=== PATIENT | female | born 1980 | race American Indian/Alaskan Native ===

== ENCOUNTER 2017-07-12 01:56 | Emergency (ER) | payer BC ==
--- NOTE | 2017-07-12 03:30 | XRay Report ---
FINAL REPORT PROCEDURE: XR ANKLE 2V LT TECHNIQUE: LEFT ankle radiographs, AP, lateral, and oblique views. CPT 53806 HISTORY: swollen left ankle and foot COMPARISON: No prior studies are available for comparison. FINDINGS: Fracture (s) and/or Dislocation(s): None. Alignment: Normal. Joint space(s): Normal. Soft tissues: There is generalized soft tissue swelling. Bone mineralization: Normal. Foreign bodies: None. Calcaneal spurring: None. IMPRESSION: There is no acute bony abnormality. There is generalized soft tissue swelling..
--- NOTE | 2017-07-12 03:31 | XRay Report ---
FINAL REPORT PROCEDURE: XR FOOT 2V LT TECHNIQUE: LEFT foot radiographs, AP and lateral views. HISTORY: swollen left ankle and foot COMPARISON: No prior studies are available for comparison. FINDINGS: Fracture (s) and/or Dislocation(s): None . Alignment: Normal. Joint space(s): Normal. Soft tissues: Normal. Bone mineralization: Normal. Foreign bodies: None. Calcaneal spurring: None. IMPRESSION: Normal Examination.
--- NOTE | 2017-07-12 04:02 | Emergency Department Report ---
ED Extremity Problem HPI - General Chief complaint: Extremity Injury, Lower Stated complaint: LEFT FOOT PAIN Time Seen by Provider: 07/12/17 03:58 Source: patient Mode of arrival: Ambulatory Limitations: No Limitations - History of Present Illness Initial comments: 37-year-old -[place] female with past medical history of hypertension who was supposed to be on hydrochlorothiazide but not taking comes in complaint of left foot pain and left ankle pain. She denies any trauma this been going on for 1 day. 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 Patient has taken no pain medication. Patient's able to walk without difficulties. She has no primary care provider. Has no known drug allergies. Takes no medications on a daily basis. MD Complaint: extremity pain, extremity swelling -: days(s) (1) Location: left, lower extremity (foot/ankle) History of Same: No Severity scale (0 -10): 8 Quality: burning, aching Consistency: constant Improves with: rest Worsens with: weight bearing, walking Associated Symptoms: denies other symptoms - Related Data Previous Rx's Medication Instructions Recorded Last Taken Type Hydrochlorothiazide [Hctz] 12.5 mg PO QDAY #30 capsule 07/12/17 Unknown Rx Ibuprofen [Motrin 800 MG tab] 800 mg PO Q8HR PRN #30 tablet 07/12/17 Unknown Rx Allergies Allergy/AdvReac Type Severity Reaction Status Date / Time No Known Allergies Allergy Unverified 07/12/17 02:35 ED Review of Systems ROS: Stated complaint: LEFT FOOT PAIN Other details as noted in HPI Constitutional: denies: chills, fever Eyes: denies: eye pain, eye discharge, vision change ENT: denies: ear pain, throat pain Respiratory: denies: cough, shortness of breath, wheezing Cardiovascular: denies: chest pain, palpitations Endocrine: no symptoms reported Gastrointestinal: denies: abdominal pain, nausea, diarrhea Genitourinary: denies: urgency, dysuria, discharge Musculoskeletal: joint swelling (left ankle), arthralgia (left foot pain) Skin: denies: rash, lesions Neurological: denies: headache, weakness, paresthesias Psychiatric: denies: anxiety, depression Hematological/Lymphatic: denies: easy bleeding, easy bruising ED Past Medical Hx - Past Medical History Previous Medical History?: Yes Additional medical history: Mitral valve prolapse - Surgical History Past Surgical History?: Yes Additional Surgical History: laposcopic - Social History Smoking Status: Never Smoker Substance Use Type: Alcohol - Medications Home Medications: Home Medications Medication Instructions Recorded Confirmed Last Taken Type Hydrochlorothiazide [Hctz] 12.5 mg PO QDAY #30 capsule 07/12/17 Unknown Rx Ibuprofen [Motrin 800 MG tab] 800 mg PO Q8HR PRN #30 tablet 07/12/17 Unknown Rx ED Physical Exam - General Limitations: No Limitations General appearance: alert, in no apparent distress - Head Head exam: Present: atraumatic, normocephalic - Eye Eye exam: Present: normal appearance - ENT ENT exam: Present: mucous membranes moist - Neck Neck exam: Present: normal inspection - Respiratory Respiratory exam: Present: normal lung sounds bilaterally. Absent: respiratory distress - Cardiovascular Cardiovascular Exam: Present: regular rate, normal rhythm. Absent: systolic murmur, diastolic murmur, rubs, gallop - GI/Abdominal GI/Abdominal exam: Present: soft, normal bowel sounds - Expanded Lower Extremity Exam Left Hip exam: Present: normal inspection, full ROM Upper Leg exam: Present: normal inspection, full ROM Knee exam: Present: normal inspection, full ROM Lower Leg exam: Present: normal inspection, full ROM Ankle exam: Present: full ROM, swelling (lateral malleolus). Absent: tenderness Foot/Toe exam: Present: full ROM, tenderness (palpating the metacarpals). Absent: swelling, abrasion, erythema - Back Exam Back exam: Present: normal inspection - Neurological Exam Neurological exam: Present: alert, oriented X3 - Psychiatric Psychiatric exam: Present: normal affect, normal mood - Skin Skin exam: Present: warm, dry, intact, normal color. Absent: rash ED Course Vital Signs 07/12/17 02:35 Temperature 98 F Pulse Rate 67 Respiratory 18 Rate Blood Pressure 165/110 O2 Sat by Pulse 100 Oximetry ED Medical Decision Making - Radiology Data Radiology results: image reviewed FINDINGS: Fracture (s) and/or Dislocation(s): None. Alignment: Normal. Joint space(s): Normal. Soft tissues: There is generalized soft tissue swelling. Bone mineralization: Normal. Foreign bodies: None. Calcaneal spurring: None. IMPRESSION: There is no acute bony abnormality. There is generalized soft tissue swelling.. Transcribed By: CO Dictated By: ASHER RG MD Electronically Authenticated By: ASHER RG MD Signed Date/Time: 07/12/17324 DD/ 4 TD/TT: 07/12/17324 - Medical Decision Making Patient's been evaluated by this provider fast track. X-rays of come back within normal limits no fractures or dislocations. Patient has not taken any [id number] pain medication. We will give patient ibuprofen 800 mg now and discharge her with ibuprofen 800 mg every 8 hours as needed for pain. Discussed the patient she needs to elevate her feet. Walking on them constantly is probably aggravating the worse. Patient is to follow-up with her primary care provider regards to her chronic hypertension. Critical care attestation.: If time is entered above; I have spent that time in minutes in the direct care of this critically ill patient, excluding procedure time. ED Disposition Clinical Impression: Foot pain, left, HTN, goal below 130/80 Disposition: - TO HOME OR SELFCARE Is pt being admited?: No Does the pt Need Aspirin: No Condition: Stable Instructions: Hypertension (ED) Additional Instructions: Please take pain medication as prescribed. Please take her hypertensive medicine as prescribed. Please follow-up with the primary care provider I have listed [facility] below. Prescriptions: Hydrochlorothiazide [Hctz] 12.5 mg PO QDAY #30 capsule Ibuprofen [Motrin 800 MG tab] 800 mg PO Q8HR PRN #30 tablet PRN Reason: Pain Referrals: PRIMARY MD LISY [Primary Care Provider] - 3-5 Days [facility] [Provider Group] - 3-5 Days Forms: Work/School Release Form(ED)
[2017-07-12] MEDS ORDERED: MOTRIN PO ONE (04:19)
[2017-07-12 04:43] VITALS: BP 156/104
== END 2017-07-12 04:30 | disposition home or self-care (01) ==
LOC: ED 01:56
DX: M79.672 Pain in left foot (principal); I10 Essential (primary) hypertension
CPT/HCPCS: 99283

== ENCOUNTER 2018-04-08 04:07 | Emergency (ER) | payer BC ==
[2018-04-08 04:49] LABS: Hematocrit 38.7 % (30.3-42.9); Hemoglobin 12.8 gm/dl (10.1-14.3); Red Blood Count 4.68 M/mm3 (3.65-5.03)
[2018-04-08 04:50] LABS: Basophils # (Auto) 0.1 K/mm3 (0.0-0.1); Basophils % (Auto) 1.3 % (0.0-1.8); Eosinophils # (Auto) 0.4 K/mm3 (0.0-0.4); Eosinophils % (Auto) 6.2 % (0.0-4.3); Lymphocytes # (Auto) 2.1 K/mm3 (1.2-5.4); Lymphocytes % (Auto) 32.8 % (13.4-35.0); Mean Corpuscular HGB Conc 33 % (30-34); Mean Corpuscular Volume 83 fl (79-97); Monocytes # (Auto) 0.5 K/mm3 (0.0-0.8); Monocytes % (Auto) 7.6 % (0.0-7.3); Platelet Count 361 K/mm3 (140-440); Red Cell Distribution Width 16.3 % (13.2-15.2)
[2018-04-08 05:45] LABS: Amorphous Crystals,Urine Few; Bilirubin,Urine NEG (Negative); Blood,Urine SM (Negative); Color,Urine Yellow (Yellow); Mucus,Urine FEW /HPF; Protein,Urine <15 mg/dL mg/dL (Negative); Urobilinogen,Urine < 2.0 mg/dL (<2.0)
--- NOTE | 2018-04-08 06:44 | Ultrasound Report ---
FINAL REPORT EXAM: US TRANSVAGINAL HISTORY: pain to pelvic TECHNIQUE: Transvaginal imaging was obtained of the pelvis. FINDINGS: The uterus is anteverted measuring 7.9 cm x 4.6 cm x 6 cm. The endometrial thickness is 7.7 mm. The m yometrium is homogeneous. Free fluid is not seen. Both ovaries are normal size contour blood flow and echotexture. The right ovary measures 3.3 cm x 1. 6 cm x 3.5 cm. The left ovary measures 4.2 cm x 2.2 cm x 2.8 cm. Both ovaries show benign-appearing f ollicles. IMPRESSION: Normal-appearing uterus and ovaries. No evidence of free fluid or pelvic masses.
--- NOTE | 2018-04-08 06:44 | Ultrasound Report ---
FINAL REPORT EXAM: US PELVIC COMPLETE HISTORY: pain to pelvic TECHNIQUE: Transabdominal imaging was obtained of the pelvis. FINDINGS: The uterus is anteverted measuring 7.9 cm x 4.6 cm x 6 cm. The endometrial thickness is 7.7 mm. The m yometrium is homogeneous. Free fluid is not seen. Both ovaries are appropriate size contour and echotexture revealing benign follicles bilaterally. The right ovary measures 3.3 cm x 1.6 cm x 3.5 cm. The left ovary measures 4.2 cm x 2.2 cm x 2.8 cm. IMPRESSION: Normal-appearing uterus and ovaries. No evidence of free fluid or adnexal masses.
--- NOTE | 2018-04-08 07:33 | Emergency Department Report ---
ED Abdominal Pain HPI - General Chief Complaint: Abdominal Pain Stated Complaint: PELVIC PAIN CRAMPS Time Seen by Provider: 04/08/18 05:44 Source: patient Mode of arrival: Ambulatory Limitations: No Limitations - History of Present Illness Initial Comments: 37-year-old female to emergency Department complaining of suprapubic pain which is sharp in nature. States this feels very similar to a time when she had to have scar tissue removed from her adnexa. States she started her period on Friday was having heavier than usual bleeding and some increased clots as well. Denies any known history of any uterine fibroids. She denies any possibility for an STD. She reports no fever, chills, sweats, chest pain or palpitation. MD Complaint: abdominal pain -: Gradual Location: suprapubic Radiation: suprapubic Migration to: no migration Quality: dull Improves With: nothing Worsens With: nothing Associated Symptoms: denies: nausea, vomiting, diarrhea, constipation, dysuria, hematemesis, anorexia - Related Data Previous Rx's Medication Instructions Recorded Last Taken Type Ibuprofen [Motrin 800 MG tab] 800 mg PO Q8HR PRN #30 tablet 07/12/17 Unknown Rx hydroCHLOROthiazide [Hctz] 12.5 mg PO QDAY #30 capsule 07/12/17 Unknown Rx Ketorolac [Toradol] 10 mg PO Q6H PRN #14 tablet 04/08/18 Unknown Rx traMADol [Ultram] 50 mg PO Q6HR PRN #20 tablet 04/08/18 Unknown Rx Allergies Allergy/AdvReac Type Severity Reaction Status Date / Time No Known Allergies Allergy Verified 04/08/18 04:22 ED Review of Systems ROS: Stated complaint: PELVIC PAIN CRAMPS Other details as noted in HPI Constitutional: denies: chills, fever Eyes: denies: eye pain, eye discharge, vision change ENT: denies: ear pain, throat pain Respiratory: denies: cough, shortness of breath, wheezing Cardiovascular: denies: chest pain, palpitations Endocrine: no symptoms reported Gastrointestinal: nausea. denies: abdominal pain, diarrhea Genitourinary: denies: urgency, dysuria, discharge Musculoskeletal: denies: back pain, joint swelling, arthralgia Skin: denies: rash, lesions Neurological: denies: headache, weakness, paresthesias Psychiatric: denies: anxiety, depression Hematological/Lymphatic: denies: easy bleeding, easy bruising ED Past Medical Hx - Past Medical History Previous Medical History?: Yes Hx Hypertension: Yes Additional medical history: Mitral valve prolapse - Surgical History Past Surgical History?: Yes Additional Surgical History: laposcopic. scar tissue removed from ovaries and fallopenan tubes. - Social History Smoking Status: Current Every Day Smoker Substance Use Type: Alcohol - Medications Home Medications: Home Medications Medication Instructions Recorded Confirmed Last Taken Type Ibuprofen [Motrin 800 MG tab] 800 mg PO Q8HR PRN #30 tablet 07/12/17 Unknown Rx hydroCHLOROthiazide [Hctz] 12.5 mg PO QDAY #30 capsule 07/12/17 Unknown Rx Ketorolac [Toradol] 10 mg PO Q6H PRN #14 tablet 04/08/18 Unknown Rx traMADol [Ultram] 50 mg PO Q6HR PRN #20 tablet 04/08/18 Unknown Rx ED Physical Exam - General Limitations: No Limitations General appearance: alert, in no apparent distress - Head Head exam: Present: atraumatic, normocephalic - Eye Eye exam: Present: normal appearance, PERRL - ENT ENT exam: Present: mucous membranes moist - Neck Neck exam: Present: normal inspection - Respiratory Respiratory exam: Present: normal lung sounds bilaterally. Absent: respiratory distress - Cardiovascular Cardiovascular Exam: Present: regular rate, normal rhythm. Absent: systolic murmur, diastolic murmur, rubs, gallop - GI/Abdominal GI/Abdominal exam: Present: soft, tenderness (suprapubic region), normal bowel sounds, other (assessment de la torre's. No Marcus sign, no Ndiaye Melo). Absent: guarding - Extremities Exam Extremities exam: Present: normal inspection, full ROM, normal capillary refill - Back Exam Back exam: Present: normal inspection - Neurological Exam Neurological exam: Present: alert, oriented X3 - Psychiatric Psychiatric exam: Present: normal affect, normal mood - Skin Skin exam: Present: warm, dry, intact, normal color. Absent: rash ED Course Vital Signs 04/08/18 04:17 Temperature 98.2 F Pulse Rate 81 Respiratory 18 Rate Blood Pressure 153/110 O2 Sat by Pulse 100 Oximetry ED Medical Decision Making - Lab Data Result diagrams: 04/08/18 04:26 - Radiology Data Radiology results: report reviewed Ultrasound is normal. No acute processes. No limb almost ovarian cyst Critical care attestation.: If time is entered above; I have spent that time in minutes in the direct care of this critically ill patient, excluding procedure time. ED Disposition Clinical Impression: Pelvic pain, Dysmenorrhea Disposition: TO HOME OR SELFCARE Is pt being admited?: No Does the pt Need Aspirin: No Condition: Stable Instructions: Abdominal Pain (ED) Prescriptions: Ketorolac [Toradol] 10 mg PO Q6H PRN #14 tablet PRN Reason: Pain traMADol [Ultram] 50 mg PO Q6HR PRN #20 tablet PRN Reason: Pain Referrals: ROX MELLO MD [Primary Care Provider] - 3-5 Days [facility] [Provider Group] - 3-5 Days
[2018-04-08] MEDS ORDERED: TORADOL IV STA (07:45)
[2018-04-08] MEDS ORDERED: TORADOL ONE (07:50)
[2018-04-08] MEDS ORDERED: TORADOL IM ONE (07:53)
[2018-04-08 08:05] VITALS: BP 148/100
== END 2018-04-08 08:04 | disposition home or self-care (01) ==
LOC: ED 04:07
DX: N94.6 Dysmenorrhea, unspecified (principal); I10 Essential (primary) hypertension; F17.200 Nicotine dependence, unspecified, uncomplicated
CPT/HCPCS: 36415; 76830; 76856; 81001; 84702; 85025; 96372; 99284; J1885

== ENCOUNTER 2018-05-02 05:17 | Emergency (ER) | payer BC ==
[2018-05-02] MEDS ORDERED: ASPIRIN PO ONE (05:36)
[2018-05-02 05:53] LABS: Basophils # (Auto) 0.1 K/mm3 (0.0-0.1); Basophils % (Auto) 1.2 % (0.0-1.8); Eosinophils # (Auto) 0.3 K/mm3 (0.0-0.4); Eosinophils % (Auto) 4.1 % (0.0-4.3); Hematocrit 36.8 % (30.3-42.9); Hemoglobin 12.4 gm/dl (10.1-14.3); Lymphocytes # (Auto) 2.6 K/mm3 (1.2-5.4); Lymphocytes % (Auto) 31.8 % (13.4-35.0); Mean Corpuscular HGB Conc 34 % (30-34); Mean Corpuscular Volume 82 fl (79-97); Monocytes # (Auto) 0.6 K/mm3 (0.0-0.8); Monocytes % (Auto) 7.4 % (0.0-7.3); Platelet Count 364 K/mm3 (140-440); Red Blood Count 4.52 M/mm3 (3.65-5.03); Red Cell Distribution Width 15.6 % (13.2-15.2)
[2018-05-02 06:24] LABS: BUN/Creatinine Ratio 23; Blood Urea Nitrogen 14 mg/dL (7-17); Calcium 8.8 mg/dL (8.4-10.2); Hemolysis Index 38
--- NOTE | 2018-05-02 06:30 | Emergency Department Report ---
Minor Respiratory - HPI Chief Complaint: Chest Pain Stated Complaint: CHEST PAIN Time Seen by Provider: 05/02/18 06:03 Duration: 2 Days Pain Location: Chest Severity: moderate Minor Respiratory: Yes Able to Tolerate Fluids, Yes Cough (non productive), Yes Chest Pain (soreness in the anterior chest), No Rhinorrhea, No Sore Throat, No Ear Pain, No Sick Contacts, No Hemoptysis, No Shortness of Breath, No Fever ED Review of Systems ROS: Stated complaint: CHEST PAIN Other details as noted in HPI Comment: All other systems reviewed and negative ED Past Medical Hx - Past Medical History Hx Hypertension: Yes Additional medical history: Mitral valve prolapse - Surgical History Additional Surgical History: laposcopic. scar tissue removed from ovaries and fallopenan tubes. - Social History Smoking Status: Never Smoker Substance Use Type: None - Medications Home Medications: Home Medications Medication Instructions Recorded Confirmed Last Taken Type Ibuprofen [Motrin 800 MG tab] 800 mg PO Q8HR PRN #30 tablet 07/12/17 Unknown Rx hydroCHLOROthiazide [Hctz] 12.5 mg PO QDAY #30 capsule 07/12/17 Unknown Rx Ketorolac [Toradol] 10 mg PO Q6H PRN #14 tablet 04/08/18 Unknown Rx traMADol [Ultram] 50 mg PO Q6HR PRN #20 tablet 04/08/18 Unknown Rx ALBUTEROL Inhaler (OR & NICU) 2 puff IH QID PRN #1 inhalation 05/02/18 Unknown Rx [ProAir HFA Inhaler] Benzonatate [Tessalon Perles] 100 mg PO Q8HR #10 capsule 05/02/18 Unknown Rx predniSONE [Deltasone] 20 mg PO QDAY #5 tab 05/02/18 Unknown Rx Minor Respiratory Exam - Exam General: Vital signs noted. No distress. Alert and acting appropriately. HEENT: Yes Moist Mucous Membranes, No Pharyngeal Erythema, No Pharyngeal Exudates, No Rhinorrhea, No Conjuctival Injection, No Frontal Tenderness, No Maxillary Tenderness Ear: Neither TM Bulge, Neither TM Erythema, Neither EAC Pain, Neither EAC Discharge Neck: Yes Supple, No Adenopathy Lungs: Yes Good Air Exchange, Yes Cough, No Wheezes, No Ronchi, No Stridor, No Labored Respirations, No Retractions, No Use of Accessory Muscles, No Other Abnormal Lung Sounds Heart: Yes Regular, No Murmur Abdomen: Yes Normal Bowel Sounds, No Tenderness, No Peritoneal Signs Skin: No Rash, No Edema Neurologic: Alert and oriented, no deficits. Musculoskeletal: Unremarkable. ED Course Vital Signs 05/02/18 05:34 Temperature 98.9 F Pulse Rate 85 Respiratory 14 Rate Blood Pressure 153/109 O2 Sat by Pulse 98 Oximetry ED Medical Decision Making - Lab Data Result diagrams: 05/02/18 05:42 05/02/18 05:42 Lab Results 05/02/18 05/02/18 Range/Units 05:42 05:42 WBC 8.2 (4.5-11.0) K/mm3 RBC 4.52 (3.65-5.03) M/mm3 Hgb 12.4 (10.1-14.3) gm/dl Hct 36.8 (30.3-42.9) % MCV 82 (79-97) fl MCH 28 (28-32) pg MCHC 34 (30-34) % RDW 15.6 H (13.2-15.2) % Plt Count 364 (140-440) K/mm3 Lymph % (Auto) 31.8 (13.4-35.0) % [place] % (Auto) 7.4 H (0.0-7.3) % Eos % (Auto) 4.1 (0.0-4.3) % Baso % (Auto) 1.2 (0.0-1.8) % Lymph # 2.6 (1.2-5.4) K/mm3 [place] # 0.6 (0.0-0.8) K/mm3 Eos # 0.3 (0.0-0.4) K/mm3 Baso # 0.1 (0.0-0.1) K/mm3 Seg Neutrophils % 55.5 (40.0-70.0) % Seg Neutrophils # 4.5 (1.8-7.7) K/mm3 Sodium 138 (137-145) mmol/L Potassium 4.2 (3.6-5.0) mmol/L Chloride 104.2 (98-107) mmol/L Carbon Dioxide 22 (22-30) mmol/L Anion Gap 16 mmol/L BUN 14 (7-17) mg/dL Creatinine 0.6 L (0.7-1.2) mg/dL Estimated GFR > 60 ml/min BUN/Creatinine Ratio 23 % Glucose 91 (65-100) mg/dL Calcium 8.8 (8.4-10.2) mg/dL Troponin T < 0.010 (0.00-0.029) ng/mL - EKG Data -: EKG Interpreted by Me EKG shows normal: sinus rhythm, axis, intervals, QRS complexes, ST-T waves Rate: normal - EKG Data Interpretation: normal EKG - Radiology Data CXR WNL Critical care attestation.: If time is entered above; I have spent that time in minutes in the direct care of this critically ill patient, excluding procedure time. ED Disposition Clinical Impression: Costochondral chest pain Acute bronchitis Qualifiers: Bronchitis organism: unspecified organism Qualified Code(s): J20.9 - Acute bronchitis, unspecified Disposition: DC- TO HOME OR SELFCARE Is pt being admited?: No Does the pt Need Aspirin: No Condition: Stable Instructions: Acute Bronchitis (ED), Costochondritis (ED) Referrals: KRISTINE MCCABE MD [Primary Care Provider] - 3-5 Days Time of Disposition: 08:19
--- NOTE | 2018-05-02 07:44 | XRay Report ---
FINAL REPORT PROCEDURE: XR CHEST ROUTINE 2V TECHNIQUE: PA and lateral chest radiographs were obtained. CPT 73697 HISTORY: chest pain COMPARISON: No prior studies are available for comparison. FINDINGS: Heart: Normal. Mediastinum/Vessels: Normal. Lungs/Pleural space: Normal. Bony thorax: No acute osseous abnormality. Other: IMPRESSION: Normal examination.
[2018-05-02 08:35] VITALS: BP 122/72
== END 2018-05-02 08:34 | disposition home or self-care (01) ==
LOC: ED 05:17
DX: M94.0 Chondrocostal junction syndrome [Tietze] (principal); J20.9 Acute bronchitis, unspecified; I10 Essential (primary) hypertension
CPT/HCPCS: 36415; 71046; 80048; 84484; 84703; 85025; 93005; 93010

== ENCOUNTER 2018-08-16 18:47 | Emergency (ER) | payer BC ==
[2018-08-16 18:57] VITALS: BP 143/92
[2018-08-16] MEDS ORDERED: TORADOL IM ONE (20:06)
[2018-08-16] MEDS ORDERED: ZOFRAN ODT PO ONE (20:06)
[2018-08-16] MEDS ORDERED: FLEXERIL PO ONE (20:06)
[2018-08-16] MEDS ORDERED: DECADRON IM ONE (20:06)
[2018-08-16] MEDS ORDERED: PERCOCET 5/325 PO ONE (20:07)
--- NOTE | 2018-08-16 21:03 | Emergency Department Report ---
ED General Adult HPI - General Chief complaint: Earache Stated complaint: LT EAR ACHE/ITCHING/CLOGGED Time Seen by Provider: 08/16/18 20:00 Source: patient Mode of arrival: Ambulatory Limitations: No Limitations - History of Present Illness Initial comments: Patient is a 38-year-old -Indian female with a history of chronic low back pain and sciatica who presents to the ED with acute exacerbation of her chronic low back pain that radiates to the left leg for the last 2 weeks. Patient states that she's been taking [id number] medications with no relief. Patient also complains of left ear pain with cerumen impaction and purulent discharge for the last 2 days. Patient stated that she tried to flush the left ear but the pain got worse. Patient denies headache, dizziness, fever, chills, nausea, vomiting, cough, nasal and sinus congestion, vomiting, numbness and tingling or weakness of extremities bilaterally, dysuria, urinary frequency and urgency, abdominal pain, chest pain or shortness of breath and sore throat. MD Complaint: low back pain; left ear pain -: Gradual, week(s) (2) Location: face (left ear), back (lower back) Radiation: extremity (left leg) Severity scale (0 -10): 8 Quality: aching, sharp, constant Consistency: constant Improves with: none Worsens with: movement Associated Symptoms: denies: confusion, chest pain, cough, diaphoresis, fever/chills, headaches, loss of appetite, malaise, nausea/vomiting, shortness of breath, syncope, weakness Treatments Prior to Arrival: NSAID - Related Data Previous Rx's Medication Instructions Recorded Last Taken Type Ibuprofen [Motrin 800 MG tab] 800 mg PO Q8HR PRN #30 tablet 07/12/17 Unknown Rx hydroCHLOROthiazide [Hctz] 12.5 mg PO QDAY #30 capsule 07/12/17 Unknown Rx Ketorolac [Toradol] 10 mg PO Q6H PRN #14 tablet 04/08/18 Unknown Rx ALBUTEROL Inhaler (OR & NICU) 2 puff IH QID PRN #1 inhalation 05/02/18 Unknown Rx [ProAir HFA Inhaler] Benzonatate [Tessalon Perles] 100 mg PO Q8HR #10 capsule 05/02/18 Unknown Rx predniSONE [Deltasone] 20 mg PO QDAY #5 tab 05/02/18 Unknown Rx Amoxicillin/Potassium Clav 1 each PO Q12H #20 tablet 08/16/18 Unknown Rx [Augmentin 875-125 Tablet] Baclofen 20 mg PO Q8H PRN #15 tablet 08/16/18 Unknown Rx Ibuprofen [Motrin] 600 mg PO Q8H PRN #20 tablet 08/16/18 Unknown Rx Ofloxacin 0.3% [Floxin 0.3% Otic] 2 drops OT Q12H #5 ml 08/16/18 Unknown Rx predniSONE [Deltasone] 60 mg PO QDAY #15 tab 08/16/18 Unknown Rx traMADol [Ultram 50 MG tab] 50 mg PO Q6HR PRN #15 tablet 08/16/18 Unknown Rx Allergies Allergy/AdvReac Type Severity Reaction Status Date / Time No Known Allergies Allergy Verified 04/08/18 04:22 ED Review of Systems ROS: Stated complaint: LT EAR ACHE/ITCHING/CLOGGED Other details as noted in HPI Comment: All other systems reviewed and negative Constitutional: denies: chills, fever Eyes: denies: eye pain, eye discharge, vision change ENT: ear pain (left). denies: throat pain, dental pain, hearing loss, epistaxis Respiratory: denies: cough, orthopnea, shortness of breath, SOB with exertion, SOB at rest, wheezing Cardiovascular: denies: chest pain, palpitations Endocrine: no symptoms reported. denies: see HPI, excessive sweating, intolerance to cold, increased hunger, increased thirst, increased urine, unexplained weight gain Gastrointestinal: denies: abdominal pain, nausea, diarrhea Genitourinary: denies: urgency, dysuria, discharge Musculoskeletal: back pain (lower bck), arthralgia (lower back), myalgia. denies: joint swelling Skin: denies: rash, lesions Neurological: denies: headache, weakness, paresthesias Psychiatric: denies: anxiety, depression Hematological/Lymphatic: denies: easy bleeding, easy bruising ED Past Medical Hx - Past Medical History Previous Medical History?: Yes Hx Hypertension: Yes Additional medical history: Mitral valve prolapse - Surgical History Past Surgical History?: Yes Additional Surgical History: laposcopic. scar tissue removed from ovaries and fallopenan tubes. - Social History Smoking Status: Never Smoker Substance Use Type: Alcohol - Medications Home Medications: Home Medications Medication Instructions Recorded Confirmed Last Taken Type Ibuprofen [Motrin 800 MG tab] 800 mg PO Q8HR PRN #30 tablet 07/12/17 Unknown Rx hydroCHLOROthiazide [Hctz] 12.5 mg PO QDAY #30 capsule 07/12/17 Unknown Rx Ketorolac [Toradol] 10 mg PO Q6H PRN #14 tablet 04/08/18 Unknown Rx ALBUTEROL Inhaler (OR & NICU) 2 puff IH QID PRN #1 inhalation 05/02/18 Unknown Rx [ProAir HFA Inhaler] Benzonatate [Tessalon Perles] 100 mg PO Q8HR #10 capsule 05/02/18 Unknown Rx predniSONE [Deltasone] 20 mg PO QDAY #5 tab 05/02/18 Unknown Rx Amoxicillin/Potassium Clav 1 each PO Q12H #20 tablet 08/16/18 Unknown Rx [Augmentin 875-125 Tablet] Baclofen 20 mg PO Q8H PRN #15 tablet 08/16/18 Unknown Rx Ibuprofen [Motrin] 600 mg PO Q8H PRN #20 tablet 08/16/18 Unknown Rx Ofloxacin 0.3% [Floxin 0.3% Otic] 2 drops OT Q12H #5 ml 08/16/18 Unknown Rx predniSONE [Deltasone] 60 mg PO QDAY #15 tab 08/16/18 Unknown Rx traMADol [Ultram 50 MG tab] 50 mg PO Q6HR PRN #15 tablet 08/16/18 Unknown Rx ED Physical Exam - General Limitations: No Limitations General appearance: alert, in no apparent distress - Head Head exam: Present: atraumatic, normocephalic, normal inspection - Eye Eye exam: Present: normal appearance, PERRL, EOMI. Absent: scleral icterus, nystagmus Pupils: Present: normal accommodation - ENT ENT exam: Present: normal exam, mucous membranes moist, normal external ear exam, other (erythematous left tympanic membrane; cerumen impacted) - Neck Neck exam: Present: normal inspection, full ROM. Absent: tenderness, meningismus, lymphadenopathy, thyromegaly - Respiratory Respiratory exam: Present: normal lung sounds bilaterally. Absent: respiratory distress, wheezes, rales, rhonchi, stridor, chest wall tenderness, accessory muscle use, decreased breath sounds, prolonged expiratory - Cardiovascular Cardiovascular Exam: Present: regular rate, normal rhythm, normal heart sounds. Absent: systolic murmur, diastolic murmur, rubs, gallop - GI/Abdominal GI/Abdominal exam: Present: soft, normal bowel sounds. Absent: tenderness, guarding, rebound, hyperactive bowel sounds, hypoactive bowel sounds, organomegaly - Rectal Rectal exam: Present: deferred - Extremities Exam Extremities exam: Present: normal inspection, full ROM, normal capillary refill - Back Exam Back exam: Present: normal inspection, full ROM, tenderness (Palpable lumbosacral paraspinal musculoskeletal tenderness), muscle spasm, paraspinal tenderness - Neurological Exam Neurological exam: Present: alert, oriented X3, CN II-XII intact, normal gait, reflexes normal - Psychiatric Psychiatric exam: Present: normal affect, normal mood - Skin Skin exam: Present: warm, dry, intact, normal color. Absent: rash ED Course Vital Signs 08/16/18 18:52 Temperature 98.4 F Pulse Rate 79 Respiratory 18 Rate Blood Pressure 143/92 O2 Sat by Pulse 100 Oximetry - Reevaluation(s) Reevaluation #1: 08/16/18 21:12 Patient is alert and oriented 3 and is not in distress with normal vital signs. Patient was treated for pain in the ED and on reevaluation, patient's pain is well controlled. Patient discharged home on pain medications and advised follow-up with her primary care physician in 7-10 days for reevaluation. Patient was also referred to the orthopedic surgeon Dr. Ch and Dr. Gudino, the Neurologist for further evaluation. Patient advised to return to the ED immediately if her symptoms get worse. ED Medical Decision Making - Medical Decision Making Patient is alert and oriented 3 and is not in distress with normal vital signs. Patient was treated for pain in the ED and on reevaluation, patient's pain is well controlled. Patient discharged home on pain medications and advised follow-up with her primary care physician in 7-10 days for reevaluation. Patient was also referred to the orthopedic surgeon Dr. Ch and Dr. Gudino, the Neurologist for further evaluation. Patient advised to return to the ED immediately if her symptoms get worse. - Differential Diagnosis chronic back pain; muscle spasm of back; chronci sciatica, otitis media Critical care attestation.: If time is entered above; I have spent that time in minutes in the direct care of this critically ill patient, excluding procedure time. ED Disposition Clinical Impression: Impacted cerumen of left ear, Acute otitis media, left Chronic low back pain with sciatica Qualifiers: Back pain laterality: left Sciatica laterality: sciatica of left side Qualified Code(s): M54.42 - Lumbago with sciatica, left side; G89.29 - Other chronic pain Disposition: TO HOME OR SELFCARE Is pt being admited?: No Does the pt Need Aspirin: No Condition: Stable Instructions: Otitis Media (ED), Lumbar Radiculopathy (ED), Arthralgia (ED), Cerumen Impaction (ED) Additional Instructions: Take medications at home, drink plenty of fluids and follow up with your primary care physician in 3-5 days for reevaluation. Return to the ED immediately if symptoms get worse. Prescriptions: Amoxicillin/Potassium Clav [Augmentin 875-125 Tablet] 1 each PO Q12H #20 tablet Baclofen 20 mg PO Q8H PRN #15 tablet PRN Reason: Spasms predniSONE [Deltasone] 60 mg PO QDAY #15 tab Ofloxacin 0.3% [Floxin 0.3% Otic] 2 drops OT Q12H #5 ml Ibuprofen [Motrin] 600 mg PO Q8H PRN #20 tablet PRN Reason: Pain traMADol [Ultram 50 MG tab] 50 mg PO Q6HR PRN #15 tablet PRN Reason: Pain Referrals: SABA GUDINO MD [Referring] - 3-5 Days NEO CH MD [Staff Physician] - 3-5 Days Time of Disposition: 21:00 Print Language: JAPANESE
== END 2018-08-16 21:22 | disposition home or self-care (01) ==
LOC: ED 18:47
DX: G89.29 Other chronic pain (principal); M54.42 Lumbago with sciatica, left side; H61.22 Impacted cerumen, left ear; H66.92 Otitis media, unspecified, left ear; I10 Essential (primary) hypertension; Z98.890 Other specified postprocedural states; Z79.899 Other long term (current) drug therapy
CPT/HCPCS: 96372; 99282; J1100; J1885; Q0162

== ENCOUNTER 2019-02-12 16:36 | Emergency (ER) | payer BC ==
--- NOTE | 2019-02-12 17:13 | Event Note ---
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
[2019-02-12 17:14] VITALS: BP 153/99
--- NOTE | 2019-02-12 17:14 | Emergency Department Report ---
ED Extremity Problem HPI - General Chief complaint: Extremity Injury, Upper Stated complaint: (L) SHOULDER ROTATOR CUFF Time Seen by Provider: 02/12/19 17:08 Source: patient Mode of arrival: Ambulatory Limitations: No Limitations - History of Present Illness Initial comments: pt is a 38 yo female who presents to the ED with c/o left shoulder pain. 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 she denies any fall or injury. she does not report any numbness or weakness. she states she went to [facility] and that is who diagnosed her with the small tear previously. PMHx HTN. no allergies to meds. - Related Data Previous Rx's Medication Instructions Recorded Last Taken Type Ibuprofen [Motrin 800 MG tab] 800 mg PO Q8HR PRN #30 tablet 07/12/17 Unknown Rx hydroCHLOROthiazide [Hctz] 12.5 mg PO QDAY #30 capsule 07/12/17 Unknown Rx Ketorolac [Toradol] 10 mg PO Q6H PRN #14 tablet 04/08/18 Unknown Rx ALBUTEROL Inhaler (OR & NICU) 2 puff IH QID PRN #1 inhalation 05/02/18 Unknown Rx [ProAir HFA Inhaler] Benzonatate [Tessalon Perles] 100 mg PO Q8HR #10 capsule 05/02/18 Unknown Rx predniSONE [Deltasone] 20 mg PO QDAY #5 tab 05/02/18 Unknown Rx Amoxicillin/Potassium Clav 1 each PO Q12H #20 tablet 08/16/18 Unknown Rx [Augmentin 875-125 Tablet] Baclofen 20 mg PO Q8H PRN #15 tablet 08/16/18 Unknown Rx Ibuprofen [Motrin] 600 mg PO Q8H PRN #20 tablet 08/16/18 Unknown Rx Ofloxacin 0.3% [Floxin 0.3% Otic] 2 drops OT Q12H #5 ml 08/16/18 Unknown Rx predniSONE [Deltasone] 60 mg PO QDAY #15 tab 08/16/18 Unknown Rx traMADoL [Ultram 50 MG tab] 50 mg PO Q6HR PRN #15 tablet 08/16/18 Unknown Rx Cyclobenzaprine [Flexeril] 10 mg PO QHS PRN #12 tablet 02/12/19 Unknown Rx Naproxen [EC-Naproxen] 500 mg PO BID PRN #20 tablet. 02/12/19 Unknown Rx Allergies Allergy/AdvReac Type Severity Reaction Status Date / Time No Known Allergies Allergy Verified 02/12/19 16:40 ED Review of Systems ROS: Stated complaint: (L) SHOULDER ROTATOR CUFF Other details as noted in HPI Comment: All other systems reviewed and negative ED Past Medical Hx - Past Medical History Hx Hypertension: Yes Additional medical history: Mitral valve prolapse - Surgical History Additional Surgical History: laposcopic. scar tissue removed from ovaries and fallopenan tubes. - Social History Smoking Status: Never Smoker Substance Use Type: None - Medications Home Medications: Home Medications Medication Instructions Recorded Confirmed Last Taken Type Ibuprofen [Motrin 800 MG tab] 800 mg PO Q8HR PRN #30 tablet 07/12/17 Unknown Rx hydroCHLOROthiazide [Hctz] 12.5 mg PO QDAY #30 capsule 07/12/17 Unknown Rx Ketorolac [Toradol] 10 mg PO Q6H PRN #14 tablet 04/08/18 Unknown Rx ALBUTEROL Inhaler (OR & NICU) 2 puff IH QID PRN #1 inhalation 05/02/18 Unknown Rx [ProAir HFA Inhaler] Benzonatate [Tessalon Perles] 100 mg PO Q8HR #10 capsule 05/02/18 Unknown Rx predniSONE [Deltasone] 20 mg PO QDAY #5 tab 05/02/18 Unknown Rx Amoxicillin/Potassium Clav 1 each PO Q12H #20 tablet 08/16/18 Unknown Rx [Augmentin 875-125 Tablet] Baclofen 20 mg PO Q8H PRN #15 tablet 08/16/18 Unknown Rx Ibuprofen [Motrin] 600 mg PO Q8H PRN #20 tablet 08/16/18 Unknown Rx Ofloxacin 0.3% [Floxin 0.3% Otic] 2 drops OT Q12H #5 ml 08/16/18 Unknown Rx predniSONE [Deltasone] 60 mg PO QDAY #15 tab 08/16/18 Unknown Rx traMADoL [Ultram 50 MG tab] 50 mg PO Q6HR PRN #15 tablet 08/16/18 Unknown Rx Cyclobenzaprine [Flexeril] 10 mg PO QHS PRN #12 tablet 02/12/19 Unknown Rx Naproxen [EC-Naproxen] 500 mg PO BID PRN #20 tablet. 02/12/19 Unknown Rx ED Physical Exam - General Limitations: No Limitations General appearance: alert, in no apparent distress - Head Head exam: Present: atraumatic, normocephalic - Eye Eye exam: Present: normal appearance - ENT ENT exam: Present: mucous membranes moist - Extremities Exam Extremities exam: Present: other (no bony TTP of the left shoulder, pt has discomfort with flexion of the left shoulder, FROM of the left shoulder, no sulcus sign, clavicles are equal, neurovascularly intact) - Neurological Exam Neurological exam: Present: alert, oriented X3 - Psychiatric Psychiatric exam: Present: normal affect, normal mood - Skin Skin exam: Present: warm, dry, intact ED Course Vital Signs 02/12/19 02/12/19 17:08 17:13 Temperature 98.2 F Pulse Rate 82 Respiratory 18 Rate Blood Pressure 166/109 Blood Pressure 153/99 [Right] O2 Sat by Pulse 100 Oximetry ED Medical Decision Making - Medical Decision Making pt is a 38 yo female who presents to the ED with c/o left shoulder pain. 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 she denies any fall or injury. she does not report any numbness or weakness. she states she went to [facility] and that is who diagnosed her with the small tear previously. PMHx HTN. no allergies to meds. initial vitals with elevated BP which improved upon repeat, otherwise normal. on exam: no bony TTP of the left shoulder, pt has discomfort with flexion of the left shoulder, FROM of the left shoulder, no sulcus sign, clavic les are equal, neurovascularly intact. Patient states that she has concern that she has further injured her rotator cuff and is requesting an MRI of her left shoulder. Advised patient that we do not do emergent MRIs out of the emergency room for rotator cuff injuries and will refer patient to a orthopedic doctor. Patient given prescription for Flexeril and naproxen. advised pt to please take medication as prescribed. do not drive or operate heavy machinery while taking muscle relaxer. may use ice pack, heating pad, rest, epsom salt bath. follow up with an orthopedic in the next 2-3 days. return to the emergency room for any new or worsening symptoms. - Differential Diagnosis strain, sprain, tendonitis, adhesive capsulitis, ligament injury Critical care attestation.: If time is entered above; I have spent that time in minutes in the direct care of this critically ill patient, excluding procedure time. ED Disposition Clinical Impression: Sprain of left shoulder Qualifiers: Encounter type: initial encounter Shoulder sprain type: unspecified sprain Qualified Code(s): S43.402A - Unspecified sprain of left shoulder joint, initial encounter Disposition: TO HOME OR SELFCARE Is pt being admited?: No Does the pt Need Aspirin: No Condition: Stable Instructions: Shoulder Sprain (ED) Additional Instructions: please take medication as prescribed. do not drive or operate heavy machinery while taking muscle relaxer. may use ice pack, heating pad, rest, epsom salt bath. follow up with an orthopedic in the next 2-3 days. return to the emergency room for any new or worsening symptoms. Prescriptions: Cyclobenzaprine [Flexeril] 10 mg PO QHS PRN #12 tablet PRN Reason: Muscle Spasm Naproxen [EC-Naproxen] 500 mg PO BID PRN #[address] tablet[address] MONREAL Reason: pain Referrals: NEO CH MD [Staff Physician] - 2-3 Days [facility] [Provider Group] - 2-3 Days Time of Disposition: 17:30 Print Language: TOGOLESE
== END 2019-02-12 18:00 | disposition home or self-care (01) ==
LOC: ED 16:36
DX: S43.402A Unspecified sprain of left shoulder joint, initial encounter (principal); I10 Essential (primary) hypertension; Z98.890 Other specified postprocedural states; Z79.1 Long term (current) use of non-steroidal anti-inflammatories (NSAID); Z79.2 Long term (current) use of antibiotics; Z79.899 Other long term (current) drug therapy; X50.9XXA Other and unspecified overexertion or strenuous movements or postures, initial encounter; Y93.89 Activity, other specified; Y92.511 Restaurant or cafe as the place of occurrence of the external cause; Y99.8 Other external cause status
CPT/HCPCS: 99282

== ENCOUNTER 2019-03-13 03:50 | Emergency (ER) | payer BC ==
--- NOTE | 2019-03-13 04:41 | Emergency Department Report ---
History of Present Illness - General Chief Complaint: Overdose Stated Complaint: OVERDOSE Time Seen by Provider: 03/13/19 04:02 Source: EMS Mode of arrival: Stretcher Limitations: Altered Mental Status - History of Present Illness Initial Comments: Patient is a 38-year-old [place] female who is presenting status post overdose of Xanax. Patient apparently hour prior to arrival took 10 Xanax pills which were 0.5 mg each. Patient just had ORIF with her boyfriend. Patient has a history of being suicidal in the past. MD Complaint: intentional overdose Intent: want to go to sleep, want to escape Context: Intentional Overdose: relationship problems - Related Data Previous Rx's Medication Instructions Recorded Last Taken Type Ibuprofen [Motrin 800 MG tab] 800 mg PO Q8HR PRN #30 tablet 07/12/17 Unknown Rx hydroCHLOROthiazide [Hctz] 12.5 mg PO QDAY #30 capsule 07/12/17 Unknown Rx Ketorolac [Toradol] 10 mg PO Q6H PRN #14 tablet 04/08/18 Unknown Rx ALBUTEROL Inhaler (OR & NICU) 2 puff IH QID PRN #1 inhalation 05/02/18 Unknown Rx [ProAir HFA Inhaler] Benzonatate [Tessalon Perles] 100 mg PO Q8HR #10 capsule 05/02/18 Unknown Rx predniSONE [Deltasone] 20 mg PO QDAY #5 tab 05/02/18 Unknown Rx Amoxicillin/Potassium Clav 1 each PO Q12H #20 tablet 08/16/18 Unknown Rx [Augmentin 875-125 Tablet] Baclofen 20 mg PO Q8H PRN #15 tablet 08/16/18 Unknown Rx Ibuprofen [Motrin] 600 mg PO Q8H PRN #20 tablet 08/16/18 Unknown Rx Ofloxacin 0.3% [Floxin 0.3% Otic] 2 drops OT Q12H #5 ml 08/16/18 Unknown Rx predniSONE [Deltasone] 60 mg PO QDAY #15 tab 08/16/18 Unknown Rx traMADoL [Ultram 50 MG tab] 50 mg PO Q6HR PRN #15 tablet 08/16/18 Unknown Rx Cyclobenzaprine [Flexeril] 10 mg PO QHS PRN #12 tablet 02/12/19 Unknown Rx Naproxen [EC-Naproxen] 500 mg PO BID PRN #20 tablet. 02/12/19 Unknown Rx Allergies Allergy/AdvReac Type Severity Reaction Status Date / Time No Known Allergies Allergy Verified 02/12/19 16:40 ED Review of Systems ROS: Stated complaint: OVERDOSE Other details as noted in HPI Comment: All other systems reviewed and negative ED Past Medical Hx - Past Medical History Previous Medical History?: Yes Hx Hypertension: Yes Hx Psychiatric Treatment: Yes (Anxiety, Depression, SI) Additional medical history: Mitral valve prolapse - Surgical History Additional Surgical History: laposcopic. scar tissue removed from ovaries and fallopenan tubes. - Social History Smoking Status: Never Smoker Substance Use Type: Alcohol - Medications Home Medications: Home Medications Medication Instructions Recorded Confirmed Last Taken Type Ibuprofen [Motrin 800 MG tab] 800 mg PO Q8HR PRN #30 tablet 07/12/17 Unknown Rx hydroCHLOROthiazide [Hctz] 12.5 mg PO QDAY #30 capsule 07/12/17 Unknown Rx Ketorolac [Toradol] 10 mg PO Q6H PRN #14 tablet 04/08/18 Unknown Rx ALBUTEROL Inhaler (OR & NICU) 2 puff IH QID PRN #1 inhalation 05/02/18 Unknown Rx [ProAir HFA Inhaler] Benzonatate [Tessalon Perles] 100 mg PO Q8HR #10 capsule 05/02/18 Unknown Rx predniSONE [Deltasone] 20 mg PO QDAY #5 tab 05/02/18 Unknown Rx Amoxicillin/Potassium Clav 1 each PO Q12H #20 tablet 08/16/18 Unknown Rx [Augmentin 875-125 Tablet] Baclofen 20 mg PO Q8H PRN #15 tablet 08/16/18 Unknown Rx Ibuprofen [Motrin] 600 mg PO Q8H PRN #20 tablet 08/16/18 Unknown Rx Ofloxacin 0.3% [Floxin 0.3% Otic] 2 drops OT Q12H #5 ml 08/16/18 Unknown Rx predniSONE [Deltasone] 60 mg PO QDAY #15 tab 08/16/18 Unknown Rx traMADoL [Ultram 50 MG tab] 50 mg PO Q6HR PRN #15 tablet 08/16/18 Unknown Rx Cyclobenzaprine [Flexeril] 10 mg PO QHS PRN #12 tablet 02/12/19 Unknown Rx Naproxen [EC-Naproxen] 500 mg PO BID PRN #20 tablet. 02/12/19 Unknown Rx ED Physical Exam - General Limitations: Altered Mental Status General appearance: in no apparent distress, lethargic - Head Head exam: Present: atraumatic, normocephalic - Eye Eye exam: Present: normal appearance, PERRL, EOMI - ENT ENT exam: Present: mucous membranes moist - Neck Neck exam: Present: normal inspection - Respiratory Respiratory exam: Present: normal lung sounds bilaterally. Absent: respiratory distress, wheezes, rales, rhonchi - Cardiovascular Cardiovascular Exam: Present: regular rate, normal rhythm, normal heart sounds. Absent: systolic murmur, diastolic murmur, rubs, gallop - GI/Abdominal GI/Abdominal exam: Present: soft, normal bowel sounds. Absent: distended, tenderness, guarding, rebound - Extremities Exam Extremities exam: Present: normal inspection - Back Exam Back exam: Present: normal inspection - Neurological Exam Neurological exam: Present: alert, oriented X3 - Psychiatric Psychiatric exam: Present: normal affect, normal mood - Skin Skin exam: Present: warm, dry, intact, normal color. Absent: rash ED Course Vital Signs 03/13/19 04:00 Temperature 97.8 F Pulse Rate 84 Respiratory 18 Rate Blood Pressure 163/97 O2 Sat by Pulse 98 Oximetry Critical care attestation.: If time is entered above; I have spent that time in minutes in the direct care of this critically ill patient, excluding procedure time. ED Disposition Condition: Stable
[2019-03-13 04:59] LABS: Hematocrit 39.1 % (30.3-42.9); Hemoglobin 12.7 gm/dl (10.1-14.3); Mean Corpuscular Volume 83 fl (79-97); Red Blood Count 4.73 M/mm3 (3.65-5.03)
[2019-03-13 05:00] LABS: Basophils % (Auto) 0.4 % (0.0-1.8); Eosinophils # (Auto) 0.2 K/mm3 (0.0-0.4); Eosinophils % (Auto) 2.8 % (0.0-4.3); Lymphocytes # (Auto) 2.6 K/mm3 (1.2-5.4); Lymphocytes % (Auto) 31.4 % (13.4-35.0); Mean Corpuscular HGB Conc 32 % (30-34); Monocytes # (Auto) 0.6 K/mm3 (0.0-0.8); Monocytes % (Auto) 7.7 % (0.0-7.3); Platelet Count 376 K/mm3 (140-440); Red Cell Distribution Width 16.5 % (13.2-15.2)
[2019-03-13 05:03] LABS: Alanine Aminotransferase 18 units/L (7-56); BUN/Creatinine Ratio 15; Blood Urea Nitrogen 12 mg/dL (7-17); Calcium 8.5 mg/dL (8.4-10.2)
[2019-03-13 05:04] LABS: Albumin 3.8 g/dL (3.9-5); Hemolysis Index 4
[2019-03-13 05:17] LABS: Bilirubin,Urine Negative (Negative); Blood,Urine Negative (Negative); Color,Urine Yellow (Yellow); Ictotest,Urine Negative (Negative); Urobilinogen,Urine < 2.0 mg/dL (<2.0)
[2019-03-13 05:18] LABS: Mucus,Urine 1+ /HPF
[2019-03-13 05:19] LABS: Benzodiazepines Screen,Urine PRESUMPTIVE POSITIVE
[2019-03-13 05:20] LABS: Amphetamine Screen,Urine PRESUMPTIVE NEGATIVE; Cannabinoid Screen,Urine PRESUMPTIVE NEGATIVE; Cocaine Screen,Urine PRESUMPTIVE NEGATIVE; Methadone Screen,Urine PRESUMPTIVE NEGATIVE; Opiate Screen,Urine PRESUMPTIVE NEGATIVE
[2019-03-13 07:41] VITALS: BP 157/90
--- NOTE | 2019-03-13 10:26 | Emergency Department Report ---
Sonia Doc - Documentation Documentation: I have seen and examined this patient at the request of mental health counselor and nursing. Patient states that she took Xanax and hydrocodone in an attempt to hurt herself. She states that she feels a bit confused now but she is oriented 4. She has expressed suicidal ideation to the mental health counselor. ROS All the systems reviewed and negative Examination Awake alert and oriented 4 HEENT sclerae clear Neck supple no meningismus Cardiovascular regular rate without murmur GI abdomen soft and nontender Musculoskeletal without deformity or edema Neurologic exam no acute focal deficit Labs and EKG reviewed. No outstanding issues. Impression Intentional overdose Suicidal ideation Medically clear for psychiatric admission Plan 1013. Transfer to psychiatric facility.
== END 2019-03-13 13:35 ==
LOC: ED 03:50
DX: T42.4X2A Poisoning by benzodiazepines, intentional self-harm, initial encounter (principal); I10 Essential (primary) hypertension; F41.9 Anxiety disorder, unspecified; F32.9 Major depressive disorder, single episode, unspecified; I34.1 Nonrheumatic mitral (valve) prolapse; F10.10 Alcohol abuse, uncomplicated; Z79.899 Other long term (current) drug therapy; Y92.89 Other specified places as the place of occurrence of the external cause
CPT/HCPCS: 36415; 80053; 80307; 80320; 81001; 84703; 85025; 93005; 93010; G0480